=== PATIENT | female | born 1960 | race Caucasian/White ===

== ENCOUNTER → 2018-02-07 | Outpatient (CLI) | payer OTHER ==
[~2018-02-07] MED LIST: ASPI325 PO; ASPI81CH PO
== END ==
LOC: LAB SHORT 17:00 → LAB 17:00
DX: R30.0 Dysuria (principal)
CPT/HCPCS: 87077; 87086; 87186

== ENCOUNTER → 2019-11-04 | Outpatient (CLI) | payer OTHER ==
[~2019-11-04] MED LIST changes: +[UNRECOGNIZED DRUG - OTHER]
[2019-11-06 15:10] LABS: HPV 16 Negative (Negative); HPV 18 Negative (Negative); HPV OTHER HR TYPES Positive (Negative)
== END ==
LOC: LAB SHORT 17:11 → LAB 17:11
PROVIDERS: Registered Nurse Community Health
DX: Z12.4 Encounter for screening for malignant neoplasm of cervix (principal)
CPT/HCPCS: 87624; 87625; G0123

== ENCOUNTER → 2021-05-11 | Outpatient (CLI) | payer OTHER ==
[2021-05-14 14:08] LABS: HPV 16 Negative (Negative); HPV 18 Negative (Negative); HPV OTHER HR TYPES Positive (Negative)
== END | disposition home or self-care (01) ==
LOC: LAB SHORT 14:50 → LAB 14:50
PROVIDERS: Nurse Practitioner Family
DX: Z01.419 Encounter for gynecological examination (general) (routine) without abnormal findings (principal)
CPT/HCPCS: 87624; G0123

== ENCOUNTER → 2023-08-31 | Outpatient (CLI) | payer OTHER ==
[~2023-08-31] MED LIST changes: +CEPH500 PO; +MERIBIN5 MG PO; +METO25ER PO; +Macrobid 100 M100 MG PO
[2023-09-14 07:22] LABS: HPV GENOTYPE 16 Not Detected; HPV GENOTYPE 18 Not Detected; HPV HIGH RISK Not Detected; HPV SOURCE Cervical
== END ==
LOC: LAB 15:44 → LAB SHORT 15:44
PROVIDERS: Physician Assistant
DX: Z01.419 Encounter for gynecological examination (general) (routine) without abnormal findings (principal)
CPT/HCPCS: 87624; G0123

== ENCOUNTER 2025-03-06 05:40 | Day surgery (SDC) | payer MEDICARE, OTHER ==
[~2025-03-06] VITALS: Ht 172.7 cm; Wt 69.0 kg
[2025-03-06] MEDS ORDERED: LOSA25 PO (06:22)
[2025-03-06] MEDS ORDERED: Estrace Vagin42.5 GM PV (06:23)
[2025-03-06] MEDS ORDERED: MULVITA PO (06:24)
[2025-03-06] MEDS ORDERED: Benzocaine Oral Spray 0.5ML UD ONE (06:36)
[2025-03-06 06:43] VITALS: BP 188/62
[2025-03-06] MEDS ORDERED: NS 1,000 ML IV ONE (06:47)
[2025-03-06 07:39] VITALS: BP 126/57
--- NOTE | 2025-03-06 07:40 | NUR ---
ASSUMED CARE FROM [place]. PT IS AWAKE AND VERBALIZING WELL.
[2025-03-06 07:42] VITALS: BP 123/56
[2025-03-06 07:45] VITALS: BP 117/59
[2025-03-06 07:48] VITALS: BP 123/62
[2025-03-06 07:51] VITALS: BP 141/106
--- NOTE | 2025-03-06 07:59 | NUR ---
PT AND VERBALIZED UNDERSTANDING OF WRITTEN AND VERBAL D/C INST. IV REMOVED. PT WILL BE TAKEN OUT OF THE DEPARTMENT VIA W/C.
[2025-03-06] MEDS ORDERED: Lidocaine HCl 2% 20 MG/ML 5ML SYR IV ONE (09:36)
[2025-03-06] MEDS ORDERED: Propofol 10mg/ml 20 ml Vial (Procedural) IV ONE (09:36)
== END 2025-03-06 23:00 | disposition home or self-care (01) ==
LOC: MHTC 05:40
DX: I35.2 Nonrheumatic aortic (valve) stenosis with insufficiency (principal); I13.0 Hypertensive heart and chronic kidney disease with heart failure and stage 1 through stage 4 chronic kidney disease, or unspecified chronic kidney disease; N18.31 Chronic kidney disease, stage 3a; I50.20 Unspecified systolic (congestive) heart failure; R73.03 Prediabetes; E78.5 Hyperlipidemia, unspecified; I65.23 Occlusion and stenosis of bilateral carotid arteries; I25.10 Atherosclerotic heart disease of native coronary artery without angina pectoris; I47.29 Other ventricular tachycardia; I49.3 Ventricular premature depolarization; Z87.74 Personal history of (corrected) congenital malformations of heart and circulatory system; Z79.82 Long term (current) use of aspirin; Z95.0 Presence of cardiac pacemaker; Z95.2 Presence of prosthetic heart valve
CPT/HCPCS: 93312; 93325; A9270; J2003; J2704; J7030

== ENCOUNTER → 2025-08-05 | Outpatient (CLI) | payer MEDICARE, OTHER ==
[~2025-08-05] MED LIST changes: +Crestor40 MG PO; +Estrace Vagin42.5 GM PV; +LOSA25 PO; +MULVITA PO
== END ==
LOC: LAB 15:18 → LAB SHORT 15:18
PROVIDERS: Nurse Practitioner Family
DX: Z01.419 Encounter for gynecological examination (general) (routine) without abnormal findings (principal)
CPT/HCPCS: 87624; G0145